=== PATIENT | female | born 1970 | race Two or more races ===

== ENCOUNTER 2024-05-29 11:36 | Outpatient (CLI) | payer OTHER | END 2024-05-29 11:47 | disposition home or self-care (01) | LOC: MRI 11:36 | PROVIDERS: ATTEND Orthopaedic Surgery Sports Medicine | DX: M76.52 Patellar tendinitis, left knee (principal); M76.51 Patellar tendinitis, right knee; M25.461 Effusion, right knee | CPT/HCPCS: 73721 ==